=== PATIENT | male | born 2000 | race Caucasian/White ===

== ENCOUNTER 2024-05-01 16:21 | Emergency (ER) | payer OTHER ==
[~2024-05-01] VITALS: Ht 188 cm; Wt 83.9 kg
[2024-05-01 16:28] VITALS: BP_SYST 120; PULSE 72; RESP 18; TEMP 97.3; O2SAT 98
[2024-05-01] MEDS ORDERED: IBUP-1971 PO (17:14)
[2024-05-01] MEDS ORDERED: TRAM50TA2 PO (17:14)
[2024-05-01 17:23] VITALS: BP_SYST 130; PULSE 68; RESP 20; TEMP 97.8; O2SAT 98
== END 2024-05-01 17:24 | disposition home or self-care (01) ==
LOC: SED 16:21
DX: M54.50 Low back pain, unspecified (principal); W18.39XA Other fall on same level, initial encounter; Y93.67 Activity, basketball; Y92.89 Other specified places as the place of occurrence of the external cause; Y99.8 Other external cause status
CPT/HCPCS: 71046; 72100; 99284